=== PATIENT | male | born 1990 | race Caucasian/White ===

== ENCOUNTER 2016-10-02 07:26 | Emergency (ER) | payer SELFPAY ==
[~2016-10-02] VITALS: Ht 167.6 cm; Wt 65.0 kg
[2016-10-02] MEDS ORDERED: TETANUS, DIPHTHERIA, PERTUSSIS VAC/PF 0.5ML (>7YR OLD) IM ONE (07:45)
[2016-10-02] MEDS ORDERED: LIDOCAINE HCL/EPINEPHRINE 1%-EPI 1:100,000 30 ML VIAL INFIL ONE (07:45)
[2016-10-02] MEDS ORDERED: HYDROCODONE/ACETAMINOPHEN 10/325MG TABLET PO ONE (08:00)
[2016-10-02] MEDS ORDERED: LIDOCAINE HCL 1%/EPI 1:200,000 30 ML VIAL ONE (09:00)
[2016-10-02] MEDS ORDERED: BACITRACIN ZINC OINT UDPKT TOP ONE (11:30)
[2016-10-02 11:37] VITALS: BP 113/65
== END 2016-10-02 12:16 | disposition home or self-care (01) ==
LOC: ER 07:43
DX: S01.111A Laceration without foreign body of right eyelid and periocular area, initial encounter (principal); M79.601 Pain in right arm; V43.92XA Unspecified car occupant injured in collision with other type car in traffic accident, initial encounter; Y93.89 Activity, other specified; Y92.89 Other specified places as the place of occurrence of the external cause; Y99.8 Other external cause status
CPT/HCPCS: 12013; 70450; 70486; 90471; 90715; 99284; A4217; Z7610

== ENCOUNTER 2016-10-15 18:52 | Emergency (ER) | payer SELFPAY ==
[~2016-10-15] VITALS: Ht 162.6 cm; Wt 77.0 kg
[2016-10-15 21:00] VITALS: BP 121/68
== END 2016-10-15 21:15 | disposition home or self-care (01) ==
LOC: ER 20:15
DX: Z48.02 Encounter for removal of sutures (principal); F12.10 Cannabis abuse, uncomplicated
CPT/HCPCS: 99281; Z7610